=== PATIENT | male | born 1940 | race Caucasian/White ===

== ENCOUNTER 2016-12-14 11:07 | Inpatient (IN) | payer MEDICARE ==
[~2016-12-14] VITALS: Ht 172.7 cm; Wt 56.0 kg
[~2016-12-14 11:07] MED LIST: ADVAIR DISK1 INH; AMITRIPTYLINE H10 MG PO; BL ASPIRIN325 MG PO; CARVEDILOL3.125 MG PO; CARVEDILOL6.25 MG PO; COREG12.5 MG PO; CYANOCOBALAM1000 MCG IJ; CYANOCOBALAM1000 MCG IM; ELIQUIS2.5 MG; ISOSORB MONO30 MG PO; ISOSORBIDE MONO30 MG PO; LANOXIN0.25 MG PO; LIPITOR20 MG PO; LISINOPRIL5 MG PO; MEDDOSEPAK PO; MEGACE20 MG PO; METO50TA52 PO; NITROGLYCER0.4 MG SL; NITROSTAT0.4 MG SL; NORCO1 TAB PO; PANTOPRAZOLE SO40 MG PO; PAROXETINE20 MG PO; SERTRALINE HCL25 MG PO; SPIRIVA HANDIHALER IN; VENTOLIN HFA IN; VISTARIL 50MG C50 M1 PO; XARELTO20 MG PO; ZESTRIL10 M1 PO; ZOLOFT25 MG PO; ZPAK PO
[2016-12-14 11:48] LABS: HEMATOCRIT 41.5 % (39.0-50.0); HEMOGLOBIN 14.3 g/dl (14.0-18.0); IMMATURE GRANULOCYTES 0.3 % (0.0-1.0); MEAN CELL VOLUME 109.2 fL CALC (80.0-100.0); MEAN CORPUSCULAR HGB 37.6 pG CALC (26.0-32.0); MEAN CORPUSCULAR HGB CONC 34.5 g/L CALC (32.0-36.0); NEUT# 5.14 thou/uL (1.82-7.42); RED BLOOD COUNT 3.8 mill/uL (4.70-6.10); RED CELL DISTRI WIDTH 13.8 % (11.5-15.5)
[2016-12-14 11:59] LABS: ALBUMIN 4.3 g/dL (3.2-5.0); ALKALINE PHOSPHATASE 116 u/l (38-126); ANION GAP 16 (6-22 (CALC)); BILIRUBIN, TOTAL 1.3 mg/dL (0.0-1.4); BUN 14 mg/dL (8-23); BUN/CREATININE RATIO 11 (12-20 (CALC)); CALCIUM 9.5 mg/dL (8.4-10.2); CARBON DIOXIDE 25 mmol/l (22-30); CHLORIDE 104 mmol/l (95-108); CREATININE 1.2 mg/dL (0.7-1.3); GFR 59 ML/MIN (>=60 (CALC)); GFR FOR AFR.AMER. > 60 ML/MIN (>=60 (CALC)); GLUCOSE 106 mg/dL (82-115); POTASSIUM 4.3 mmol/l (3.5-5.1); SGOT/AST 45 u/l (19-48); SGPT/ALT 22 u/l (11-66); SODIUM 140 mmol/l (137-146); TOTAL PROTEIN 7.4 g/dL (6.3-8.2)
[2016-12-14 12:12] LABS: MYOGLOBIN 58 ng/mL (0 - 121)
[2016-12-14] MEDS ORDERED: VITAMIN C500 MG PO (12:34)
[2016-12-14] MEDS ORDERED: ASPIRIN81 MG PO (12:34)
[2016-12-14] MEDS ORDERED: B121000 MCG PO (12:35)
[2016-12-14] MEDS ORDERED: LISINOPRIL20 MG PO (12:35)
[2016-12-14] MEDS ORDERED: DILTIAZEM240 MG PO (12:36)
[2016-12-14 15:30] VITALS: BP 123/74
[2016-12-14 16:15] VITALS: BP 121/81
[2016-12-14 18:00] VITALS: BP 143/70
[2016-12-14 20:00] VITALS: BP 143/70
[2016-12-14 22:00] VITALS: BP 119/71
[2016-12-15] VITALS (17 sets, daily range): BP systolic 93–136; BP diastolic 57–82
[2016-12-15 05:56] LABS: HEMOGLOBIN 12.5 g/dl (14.0-18.0); IMMATURE GRANULOCYTES 0.3 % (0.0-1.0); MEAN CELL VOLUME 109.5 fL CALC (80.0-100.0); MEAN CORPUSCULAR HGB CONC 33.8 g/L CALC (32.0-36.0); NEUT# 4.07 thou/uL (1.82-7.42); RED BLOOD COUNT 3.38 mill/uL (4.70-6.10)
[2016-12-15 06:08] LABS: ANION GAP 10 (6-22 (CALC)); BUN 15 mg/dL (8-23); BUN/CREATININE RATIO 13 (12-20 (CALC)); CALCIUM 8.8 mg/dL (8.4-10.2); CARBON DIOXIDE 24 mmol/l (22-30); CHLORIDE 109 mmol/l (95-108); CREATININE 1.2 mg/dL (0.7-1.3); GFR 59 ML/MIN (>=60 (CALC)); GFR FOR AFR.AMER. > 60 ML/MIN (>=60 (CALC)); GLUCOSE 117 mg/dL (82-115); POTASSIUM 4.2 mmol/l (3.5-5.1); SODIUM 139 mmol/l (137-146)
[2016-12-16] VITALS (18 sets, daily range): BP systolic 91–160; BP diastolic 53–78
[2016-12-16 07:36] LABS: ANION GAP 11 (6-22 (CALC)); BUN 13 mg/dL (8-23); BUN/CREATININE RATIO 12 (12-20 (CALC)); CALCIUM 8.9 mg/dL (8.4-10.2); CARBON DIOXIDE 22 mmol/l (22-30); CHLORIDE 110 mmol/l (95-108); CREATININE 1.1 mg/dL (0.7-1.3); GFR > 60 ML/MIN (>=60 (CALC)); GFR FOR AFR.AMER. > 60 ML/MIN (>=60 (CALC)); GLUCOSE 125 mg/dL (82-115); POTASSIUM 3.9 mmol/l (3.5-5.1); SODIUM 139 mmol/l (137-146)
[2016-12-17] VITALS (13 sets, daily range): BP systolic 136–162; BP diastolic 64–97
[2016-12-17 06:21] LABS: ANION GAP 10 (6-22 (CALC)); BUN 17 mg/dL (8-23); BUN/CREATININE RATIO 15 (12-20 (CALC)); CARBON DIOXIDE 26 mmol/l (22-30); CHLORIDE 106 mmol/l (95-108); CREATININE 1.1 mg/dL (0.7-1.3); GFR > 60 ML/MIN (>=60 (CALC)); GFR FOR AFR.AMER. > 60 ML/MIN (>=60 (CALC)); GLUCOSE 86 mg/dL (82-115); POTASSIUM 4.3 mmol/l (3.5-5.1); SODIUM 139 mmol/l (137-146)
[2016-12-17 06:24] LABS: HEMATOCRIT 37.6 % (39.0-50.0); HEMOGLOBIN 12.8 g/dl (14.0-18.0); IMMATURE GRANULOCYTES 0.3 % (0.0-1.0); MEAN CELL VOLUME 111.2 fL CALC (80.0-100.0); MEAN CORPUSCULAR HGB 37.9 pG CALC (26.0-32.0); NEUT# 4.72 thou/uL (1.82-7.42); RED BLOOD COUNT 3.38 mill/uL (4.70-6.10); RED CELL DISTRI WIDTH 13.6 % (11.5-15.5)
[2016-12-18] VITALS (12 sets, daily range): BP systolic 117–168; BP diastolic 58–102
[2016-12-18 05:12] LABS: HEMATOCRIT 37.5 % (39.0-50.0); HEMOGLOBIN 12.6 g/dl (14.0-18.0); IMMATURE GRANULOCYTES 0.2 % (0.0-1.0); MEAN CELL VOLUME 110.9 fL CALC (80.0-100.0); MEAN CORPUSCULAR HGB 37.3 pG CALC (26.0-32.0); MEAN CORPUSCULAR HGB CONC 33.6 g/L CALC (32.0-36.0); NEUT# 3.8 thou/uL (1.82-7.42); RED BLOOD COUNT 3.38 mill/uL (4.70-6.10); RED CELL DISTRI WIDTH 13.4 % (11.5-15.5)
[2016-12-18 05:27] LABS: ANION GAP 11 (6-22 (CALC)); BUN 19 mg/dL (8-23); BUN/CREATININE RATIO 16 (12-20 (CALC)); CALCIUM 9.1 mg/dL (8.4-10.2); CARBON DIOXIDE 26 mmol/l (22-30); CHLORIDE 108 mmol/l (95-108); CREATININE 1.1 mg/dL (0.7-1.3); GFR > 60 ML/MIN (>=60 (CALC)); GFR FOR AFR.AMER. > 60 ML/MIN (>=60 (CALC)); GLUCOSE 95 mg/dL (82-115); MAGNESIUM 1.8 mg/dL (1.6-2.3); POTASSIUM 3.9 mmol/l (3.5-5.1); SODIUM 141 mmol/l (137-146)
[2016-12-19 04:05] VITALS: BP 141/98
[2016-12-19 08:35] VITALS: BP 141/95
[2016-12-19 11:57] VITALS: BP 141/89
[2016-12-19 15:23] VITALS: BP 118/77
[2016-12-19 19:00] VITALS: BP 132/78
[2016-12-20 00:10] VITALS: BP 120/70
[2016-12-20 04:50] VITALS: BP 135/80
[2016-12-20 05:24] LABS: ANION GAP 12 (6-22 (CALC)); BUN 27 mg/dL (8-23); BUN/CREATININE RATIO 24 (12-20 (CALC)); CARBON DIOXIDE 23 mmol/l (22-30); CHLORIDE 109 mmol/l (95-108); CREATININE 1.1 mg/dL (0.7-1.3); GFR > 60 ML/MIN (>=60 (CALC)); GFR FOR AFR.AMER. > 60 ML/MIN (>=60 (CALC)); GLUCOSE 82 mg/dL (82-115); POTASSIUM 4.4 mmol/l (3.5-5.1); SODIUM 139 mmol/l (137-146)
[2016-12-20 07:23] VITALS: BP 143/83
[2016-12-20] MEDS ORDERED: CORDARONE/200 MG/TAB PO (10:35)
[2016-12-20] MEDS ORDERED: DIGOXIN0.125 MG PO (10:36)
[2016-12-20 13:56] VITALS: BP 147/78
[2016-12-20 14:15] LABS: HEMATOCRIT 38.6 % (39.0-50.0); HEMOGLOBIN 12.9 g/dl (14.0-18.0); IMMATURE GRANULOCYTES 0.2 % (0.0-1.0); MEAN CELL VOLUME 113.5 fL CALC (80.0-100.0); MEAN CORPUSCULAR HGB 37.9 pG CALC (26.0-32.0); MEAN CORPUSCULAR HGB CONC 33.4 g/L CALC (32.0-36.0); NEUT# 2.56 thou/uL (1.82-7.42); RED BLOOD COUNT 3.4 mill/uL (4.70-6.10); RED CELL DISTRI WIDTH 14.1 % (11.5-15.5)
[2016-12-20] MEDS ORDERED: INVANZ1 GM IJ (14:48)
[2016-12-20] MEDS ORDERED: LANOXIN0.125 MG PO (15:10)
== END 2016-12-20 15:30 | disposition home or self-care (01) | DRG 177 ==
LOC: ENPENDDIS → ED 11:07 → ED-I 12:50 → ED 13:16 → ICU 13:17 → MS2 12-18 15:15
PROVIDERS: Emergency Medicine; Internal Medicine; ADMIT Internal Medicine; ATTEND Internal Medicine
DX: J86.9 Pyothorax without fistula (principal); J15.1 Pneumonia due to Pseudomonas; I50.33 Acute on chronic diastolic (congestive) heart failure; J96.11 Chronic respiratory failure with hypoxia; K51.90 Ulcerative colitis, unspecified, without complications; I11.0 Hypertensive heart disease with heart failure; I48.2 Chronic atrial fibrillation; J44.0 Chronic obstructive pulmonary disease with (acute) lower respiratory infection; I10 Essential (primary) hypertension; E78.5 Hyperlipidemia, unspecified; I25.10 Atherosclerotic heart disease of native coronary artery without angina pectoris; I70.209 Unspecified atherosclerosis of native arteries of extremities, unspecified extremity; F17.210 Nicotine dependence, cigarettes, uncomplicated; Z95.0 Presence of cardiac pacemaker; Z88.0 Allergy status to penicillin; Z95.828 Presence of other vascular implants and grafts
CPT/HCPCS: J0282; J1160; J1335; Q9967

== ENCOUNTER 2018-01-05 10:14 | Inpatient (IN) | payer MEDICARE ==
[~2018-01-05] VITALS: Ht 170.2 cm; Wt 54.4 kg
[~2018-01-05 10:14] MED LIST changes: +ASPIRIN81 MG PO; +B121000 MCG PO; +CORDARONE/200 MG/TAB PO; +DIGOXIN0.125 MG PO; +DILTIAZEM240 MG PO; +INVANZ1 GM IJ; +LANOXIN0.125 MG PO; +LISINOPRIL20 MG PO; +VITAMIN C500 MG PO
[2018-01-05 10:35] VITALS: BP 196/100
[2018-01-05 10:46] LABS: HEMATOCRIT 42.5 % (39.0-50.0); HEMOGLOBIN 14.3 g/dl (14.0-18.0); IMMATURE GRANULOCYTES 0.5 % (0.0-1.0); MEAN CELL VOLUME 108.1 fL CALC (80.0-100.0); MEAN CORPUSCULAR HGB 36.4 pG CALC (26.0-32.0); MEAN CORPUSCULAR HGB CONC 33.6 g/L CALC (32.0-36.0); NEUT# 5.62 thou/uL (1.82-7.42); RED BLOOD COUNT 3.93 mill/uL (4.70-6.10); RED CELL DISTRI WIDTH 13.7 % (11.5-15.5)
[2018-01-05 11:47] LABS: ANION GAP 12 (6-22 (CALC)); BUN 10 mg/dL (8-23); BUN/CREATININE RATIO 12 (12-20 (CALC)); CARBON DIOXIDE 27 mmol/l (22-30); CHLORIDE 106 mmol/l (95-108); CREATININE 0.9 mg/dL (0.7-1.3); GFR > 60 ML/MIN (>=60 (CALC)); GFR FOR AFR.AMER. > 60 ML/MIN (>=60 (CALC)); POTASSIUM 4.7 mmol/l (3.5-5.1); SODIUM 140 mmol/l (137-146)
[2018-01-05 13:00] LABS: URINE BILIRUBIN - DIPSTICK NEGATIVE (NEGATIVE); URINE BLOOD DIPSTICK NEGATIVE (NEGATIVE); URINE COLOR YELLOW; URINE GLUCOSE - DIPSTICK NEGATIVE (NEGATIVE); URINE KETONE NEGATIVE (NEGATIVE); URINE LEUK ESTERASE TRACE (NEGATIVE); URINE NITRITE - DIPSTICK NEGATIVE (Negative); URINE PH 6.5 (4.5-8.0); URINE PROTEIN - DIPSTICK NEGATIVE (NEG-TRACE)
[2018-01-05 13:07] LABS: URINE CLARITY CLEAR
[2018-01-05 15:43] VITALS: BP 139/63
[2018-01-05] MEDS ORDERED: AMIODARONE200 MG PO (17:08)
[2018-01-05] MEDS ORDERED: LIPITOR20 MG PO (17:09)
[2018-01-05] MEDS ORDERED: LASIX 40 MG40 MG/TAB PO (17:09)
[2018-01-05 19:20] VITALS: BP 137/60
[2018-01-06] VITALS (8 sets, daily range): BP systolic 127–166; BP diastolic 50–76
[2018-01-06 05:13] LABS: ALKALINE PHOSPHATASE 123 u/l (38-126); ANION GAP 10 (6-22 (CALC)); BILIRUBIN, TOTAL 0.5 mg/dL (0.0-1.4); BUN 17 mg/dL (8-23); BUN/CREATININE RATIO 19 (12-20 (CALC)); CARBON DIOXIDE 24 mmol/l (22-30); CHLORIDE 108 mmol/l (95-108); CREATININE 0.9 mg/dL (0.7-1.3); GFR > 60 ML/MIN (>=60 (CALC)); GFR FOR AFR.AMER. > 60 ML/MIN (>=60 (CALC)); POTASSIUM 4.3 mmol/l (3.5-5.1); SGOT/AST 20 u/l (19-48); SGPT/ALT 27 u/l (11-66); SODIUM 137 mmol/l (137-146)
[2018-01-06 05:38] LABS: ALBUMIN 2.8 g/dL (3.2-5.0); TOTAL PROTEIN 5.7 g/dL (6.3-8.2)
[2018-01-06] MEDS ORDERED: NEBULIZER (10:41)
[2018-01-06] MEDS ORDERED: BEVESPI AEROSPH1 AER PO (10:42)
[2018-01-07 04:17] VITALS: BP 155/70
[2018-01-07 06:04] LABS: IMMATURE GRANULOCYTES 0.8 % (0.0-1.0); MEAN CELL VOLUME 108.2 fL CALC (80.0-100.0); MEAN CORPUSCULAR HGB 36.8 pG CALC (26.0-32.0); NEUT# 16.08 thou/uL (1.82-7.42); RED BLOOD COUNT 3.04 mill/uL (4.70-6.10); RED CELL DISTRI WIDTH 13.7 % (11.5-15.5)
[2018-01-07 06:07] LABS: HEMATOCRIT 32.9 % (39.0-50.0); HEMOGLOBIN 11.2 g/dl (14.0-18.0)
[2018-01-07 06:31] LABS: ANION GAP 7 (6-22 (CALC)); BUN 21 mg/dL (8-23); BUN/CREATININE RATIO 23 (12-20 (CALC)); CARBON DIOXIDE 25 mmol/l (22-30); CHLORIDE 110 mmol/l (95-108); CREATININE 0.9 mg/dL (0.7-1.3); GFR > 60 ML/MIN (>=60 (CALC)); GFR FOR AFR.AMER. > 60 ML/MIN (>=60 (CALC)); MAGNESIUM 1.8 mg/dL (1.6-2.3); POTASSIUM 4.2 mmol/l (3.5-5.1); SODIUM 138 mmol/l (137-146)
[2018-01-07 07:41] VITALS: BP 178/88
[2018-01-07 12:57] VITALS: BP 156/75
[2018-01-07 17:00] VITALS: BP 138/43
[2018-01-07 19:50] VITALS: BP 129/64
[2018-01-08 00:10] VITALS: BP 129/68
[2018-01-08 04:50] VITALS: BP 156/78
[2018-01-08 08:43] LABS: HEMOGLOBIN 12.9 g/dl (14.0-18.0); MEAN CELL VOLUME 109.2 fL CALC (80.0-100.0); MEAN CORPUSCULAR HGB 35.8 pG CALC (26.0-32.0); MEAN CORPUSCULAR HGB CONC 32.8 g/L CALC (32.0-36.0); RED BLOOD COUNT 3.6 mill/uL (4.70-6.10); RED CELL DISTRI WIDTH 13.4 % (11.5-15.5)
[2018-01-08 08:45] LABS: HEMATOCRIT 39.3 % (39.0-50.0)
[2018-01-08 08:50] LABS: ANION GAP 10 (6-22 (CALC)); BUN 28 mg/dL (8-23); BUN/CREATININE RATIO 32 (12-20 (CALC)); CARBON DIOXIDE 27 mmol/l (22-30); CHLORIDE 105 mmol/l (95-108); CREATININE 0.9 mg/dL (0.7-1.3); GFR > 60 ML/MIN (>=60 (CALC)); GFR FOR AFR.AMER. > 60 ML/MIN (>=60 (CALC)); POTASSIUM 4.2 mmol/l (3.5-5.1); SODIUM 138 mmol/l (137-146)
[2018-01-08 09:01] VITALS: BP 149/61
[2018-01-08 11:14] VITALS: BP 127/66
[2018-01-08 15:26] VITALS: BP 151/63
[2018-01-08 19:35] VITALS: BP 140/71
[2018-01-09 00:05] VITALS: BP 139/71
[2018-01-09 04:40] VITALS: BP 155/72
[2018-01-09 05:22] LABS: HEMATOCRIT 38.3 % (39.0-50.0); HEMOGLOBIN 12.3 g/dl (14.0-18.0); IMMATURE GRANULOCYTES 0.6 % (0.0-1.0); MEAN CELL VOLUME 114.3 fL CALC (80.0-100.0); MEAN CORPUSCULAR HGB 36.7 pG CALC (26.0-32.0); MEAN CORPUSCULAR HGB CONC 32.1 g/L CALC (32.0-36.0); NEUT# 10.1 thou/uL (1.82-7.42); RED BLOOD COUNT 3.35 mill/uL (4.70-6.10); RED CELL DISTRI WIDTH 13.6 % (11.5-15.5)
[2018-01-09 05:23] LABS: ANION GAP 12 (6-22 (CALC)); BUN 34 mg/dL (8-23); BUN/CREATININE RATIO 36 (12-20 (CALC)); CARBON DIOXIDE 23 mmol/l (22-30); CHLORIDE 107 mmol/l (95-108); CREATININE 0.9 mg/dL (0.7-1.3); GFR > 60 ML/MIN (>=60 (CALC)); GFR FOR AFR.AMER. > 60 ML/MIN (>=60 (CALC)); MAGNESIUM 1.6 mg/dL (1.6-2.3); POTASSIUM 3.4 mmol/l (3.5-5.1); SODIUM 139 mmol/l (137-146)
[2018-01-09 08:04] VITALS: BP 154/61
[2018-01-09 10:52] VITALS: BP 158/68
[2018-01-09 15:12] VITALS: BP 165/69
[2018-01-09 20:06] VITALS: BP 143/65
[2018-01-10 00:26] VITALS: BP 162/88
[2018-01-10 05:08] VITALS: BP 177/70
[2018-01-10 05:20] LABS: HEMATOCRIT 36.7 % (39.0-50.0); HEMOGLOBIN 12.3 g/dl (14.0-18.0); IMMATURE GRANULOCYTES 0.7 % (0.0-1.0); MEAN CORPUSCULAR HGB CONC 33.5 g/L CALC (32.0-36.0); NEUT# 8.01 thou/uL (1.82-7.42); RED BLOOD COUNT 3.42 mill/uL (4.70-6.10); RED CELL DISTRI WIDTH 13.1 % (11.5-15.5)
[2018-01-10 05:25] LABS: MEAN CELL VOLUME 107.3 fL CALC (80.0-100.0)
[2018-01-10 05:34] LABS: ANION GAP 9 (6-22 (CALC)); BUN 35 mg/dL (8-23); BUN/CREATININE RATIO 36 (12-20 (CALC)); CARBON DIOXIDE 29 mmol/l (22-30); CHLORIDE 103 mmol/l (95-108); GFR > 60 ML/MIN (>=60 (CALC)); GFR FOR AFR.AMER. > 60 ML/MIN (>=60 (CALC)); MAGNESIUM 1.8 mg/dL (1.6-2.3); POTASSIUM 3.2 mmol/l (3.5-5.1); SODIUM 137 mmol/l (137-146)
[2018-01-10 08:00] VITALS: BP 181/75
[2018-01-10 11:50] VITALS: BP 154/60
[2018-01-10] MEDS ORDERED: IPRATROPIU0.5 MG/3 M IN (13:31)
[2018-01-10] MEDS ORDERED: PREDNISONE10 MG PO (13:31)
[2018-01-10] MEDS ORDERED: FLORASTOR250 M1 PO (13:31)
[2018-01-10] MEDS ORDERED: LEVAQUIN750 MG PO (13:31)
[2018-01-10] MEDS ORDERED: ALBUTEROL SUL0.083 % IN (13:35)
== END 2018-01-10 16:18 | DRG 177 ==
LOC: MS2 10:14
PROVIDERS: Nurse Practitioner; Nurse Practitioner Family; ADMIT Internal Medicine; ATTEND Internal Medicine
PROC: 0W9B3ZZ Drainage of Left Pleural Cavity, Percutaneous Approach (ICD-10-PCS; principal; 2018-01-05)
DX: J15.1 Pneumonia due to Pseudomonas (principal); J96.20 Acute and chronic respiratory failure, unspecified whether with hypoxia or hypercapnia; J44.1 Chronic obstructive pulmonary disease with (acute) exacerbation; J91.8 Pleural effusion in other conditions classified elsewhere; R04.2 Hemoptysis; J44.0 Chronic obstructive pulmonary disease with (acute) lower respiratory infection; I10 Essential (primary) hypertension; E78.5 Hyperlipidemia, unspecified; I25.10 Atherosclerotic heart disease of native coronary artery without angina pectoris; I48.91 Unspecified atrial fibrillation; I73.9 Peripheral vascular disease, unspecified; F17.210 Nicotine dependence, cigarettes, uncomplicated; D72.829 Elevated white blood cell count, unspecified; T38.0X5A Adverse effect of glucocorticoids and synthetic analogues, initial encounter; E87.6 Hypokalemia; R91.1 Solitary pulmonary nodule; Z99.81 Dependence on supplemental oxygen; Z95.828 Presence of other vascular implants and grafts; Z95.0 Presence of cardiac pacemaker; Z72.89 Other problems related to lifestyle
CPT/HCPCS: J0692

== ENCOUNTER 2018-01-20 08:47 | Emergency (ER) | payer MEDICARE ==
[~2018-01-20] VITALS: Ht 170.2 cm; Wt 75.0 kg
[~2018-01-20 08:47] MED LIST changes: +ALBUTEROL SUL0.083 % IN; +AMIODARONE200 MG PO; +BEVESPI AEROSPH1 AER PO; +FLORASTOR250 M1 PO; +IPRATROPIU0.5 MG/3 M IN; +LASIX 40 MG40 MG/TAB PO; +LEVAQUIN750 MG PO; +NEBULIZER; +PREDNISONE10 MG PO
[2018-01-20 09:52] LABS: HEMATOCRIT 36.6 % (39.0-50.0); HEMOGLOBIN 12.6 g/dl (14.0-18.0); IMMATURE GRANULOCYTES 0.8 % (0.0-1.0); MEAN CELL VOLUME 105.2 fL CALC (80.0-100.0); MEAN CORPUSCULAR HGB 36.2 pG CALC (26.0-32.0); MEAN CORPUSCULAR HGB CONC 34.4 g/L CALC (32.0-36.0); NEUT# 10.46 thou/uL (1.82-7.42); RED BLOOD COUNT 3.48 mill/uL (4.70-6.10); RED CELL DISTRI WIDTH 13.5 % (11.5-15.5)
[2018-01-20 10:11] LABS: ALBUMIN 3.3 g/dL (3.2-5.0); ALKALINE PHOSPHATASE 100 u/l (38-126); ANION GAP 8 (6-22 (CALC)); BILIRUBIN, TOTAL 0.9 mg/dL (0.0-1.4); BUN 17 mg/dL (8-23); BUN/CREATININE RATIO 19 (12-20 (CALC)); CARBON DIOXIDE 29 mmol/l (22-30); CHLORIDE 104 mmol/l (95-108); CREATININE 0.9 mg/dL (0.7-1.3); GFR > 60 ML/MIN (>=60 (CALC)); GFR FOR AFR.AMER. > 60 ML/MIN (>=60 (CALC)); POTASSIUM 3.4 mmol/l (3.5-5.1); SGPT/ALT 32 u/l (11-66); SODIUM 138 mmol/l (137-146)
[2018-01-20 10:14] LABS: SGOT/AST 42 u/l (19-48)
[2018-01-20] MEDS ORDERED: [UNRECOGNIZED DRUG - OTHER] PO (10:43)
[2018-01-20] MEDS ORDERED: AMIODARONE200 MG PO (10:46)
[2018-01-20] MEDS ORDERED: BEVESPI AEROSPH1 AER IN (10:46)
[2018-01-20] MEDS ORDERED: ATORVASTATIN CA20 MG PO (10:48)
[2018-01-20] MEDS ORDERED: ROBITUSSIN200 MG/10 PO (10:50)
[2018-01-20 11:40] VITALS: BP 164/74
== END 2018-01-20 11:45 | disposition home or self-care (01) ==
LOC: ED 08:47
PROVIDERS: Emergency Medicine
DX: I11.0 Hypertensive heart disease with heart failure (principal); I50.9 Heart failure, unspecified; M19.90 Unspecified osteoarthritis, unspecified site; F17.210 Nicotine dependence, cigarettes, uncomplicated; Z95.0 Presence of cardiac pacemaker; R94.31 Abnormal electrocardiogram [ECG] [EKG]

== ENCOUNTER 2018-04-29 16:43 | Inpatient (IN) | payer MEDICARE ==
[~2018-04-29] VITALS: Ht 170.2 cm; Wt 46.3 kg
[~2018-04-29 16:43] MED LIST changes: +ATORVASTATIN CA20 MG PO; +BEVESPI AEROSPH1 AER IN; +ROBITUSSIN200 MG/10 PO; +[UNRECOGNIZED DRUG - OTHER] PO
--- NOTE | 2018-04-29 16:52 | NUR ---
PT ARRIVES VIA EMS STRETCHER, PT C/O TRIPPING OVER A PIECE OF TRIM ON THE FLOOR AND FALLING. DENIES LOC. SWELLING NOTED TO LEFT FRONTAL AREA, PT ON BLOOD THINNERS, DENIES LOC.
--- NOTE | 2018-04-29 17:40 | NUR ---
PATIENT RETURNS FROM CT, ALERT AND ORIENTED X3. REPORTS RIGHT KNEE PAIN 05/04. TERESA PENNY INFORMED.
--- NOTE | 2018-04-29 18:10 | NUR ---
PATIENT REQUESTING TO REMOVE DRESSING APPLIED BY EMS. DRESSING REMOVED, WATCH REMOVED AND GIVEN TO . URINAL GIVEN PER REQUEST. WILL CONTINUE TO MONITOR.
--- NOTE | 2018-04-29 18:25 | NUR ---
IV SITE REMOVED DUE TO BLEEDING FROM IV SITE, PRESSURE DRESSING APPLIED, NON-STICK TELF USED ON SKIN TEAR TO LFA. TERESA PENNY INFORMED.
--- NOTE | 2018-04-29 18:32 | NUR ---
TERESA PENNY AT BEDSIDE TO DISCUSS RESULTS.
--- NOTE | 2018-04-29 19:14 | NUR ---
REPRT CALLED TO DARIEL SARGENT.
--- NOTE | 2018-04-29 19:15 | NUR ---
Admission Note Report Given to: DARIEL SARGENT Transported by: Wheelchair X Stretcher Transported with: X Nurse Transporter Patent IV O2 Fiber Optic Splicer PATIENT OUT OF DEPARTMENT IN STABLE CONDITION, CARE RELINQUISHED. FAMILY ACCOMPANIES PATIENT.
[2018-04-29 19:19] VITALS: BP 178/79
--- NOTE | 2018-04-29 19:30 | NUR ---
ASSESSMENT IS COMPLETED: NO IV SITE , DRESSING ON BILATERAL ARMS FROM SKIN TEARS AND IV SITE THAT WAS TAKEN OUT IN ER. BREATH SOUNDS ARE CLEAR, BILATERALLY, NO C/O SOB HR IS REG, PULSES ARE STRONG X4, ABD IS SOFT WITH ACTIVE BS. CALL MCHUGH WITH IN REACH, FAMILY WENT HOME. CONITNUE TO OSBERVE AND MONITOR.
--- NOTE | 2018-04-29 19:30 | NUR ---
PT CAME TO THE UNIT AT 1919 VIA STRETCHER WITH FAMILY AND STAFF, NO IV SITE . DRESSING INTACT ON BILATERAL ARMS. FROM SKIN TEARS.
--- NOTE | 2018-04-29 23:47 | NUR ---
GAVE PT HIS HEPARIN AT 2200 THE COMPUTER THAT WAS IN USE HAS LOCKED THIS AMBULATORY CARE COORDINATOR IN , IT LOOKS LIKE IT WAS NOT GIVEN. PT DID RECEIVE ON TIME.
--- NOTE | 2018-04-30 | NUR ---
PT IS RESTIGN WITH EYES CLOSED. NO IV SITE . CONTINUE TO OSBERVE AND MONITOR.
--- NOTE | 2018-04-30 04:05 | NUR ---
pt has been resting off and on, conitnue to observe and monitor.
[2018-04-30 05:25] VITALS: BP 145/75
--- NOTE | 2018-04-30 07:15 | NUR ---
PT RESTING IN BED, NO SIGNS OF DISTRESS NOTED, RESP EVEN AND UNLABORED. IS AT BEDSIDE, PT PROVIDED TEACHING AND DEMONSTRATED ITS USE. DISCUSSED POC,PT IN AGREEMENT. NO IV SITE. PT STATES HE CANNOT WALK DUE TO SEVERE PAIN TO RLE, WILL NOTIFY MD FOR PAIN MEDICATION. PT ALERT AND ORIENTED X3, MULTIPLE ABRASIONS AND BRUISING FROM FALL AT HOME HE WALKED INTO HIS SHED HE TRIPPED AND HIT THE CONCRETE, NO LOC. PT HAS A DRESSING TO R HAND, NOTED ABRASION TO HIS HEAD NO DRAINAGE NOTED. ASSESSMENT COMPLETED. CALL LIGHT IN REACH,CONTINUE TO MONITOR.
[2018-04-30 09:03] VITALS: BP 139/63
[2018-04-30 09:37] LABS: URINE BILIRUBIN - DIPSTICK NEGATIVE (NEGATIVE); URINE BLOOD DIPSTICK NEGATIVE (NEGATIVE); URINE COLOR YELLOW; URINE GLUCOSE - DIPSTICK NEGATIVE (NEGATIVE); URINE KETONE TRACE mg/dL (NEGATIVE); URINE LEUK ESTERASE NEGATIVE (NEGATIVE); URINE NITRITE - DIPSTICK NEGATIVE (Negative); URINE PH 6.5 (4.5-8.0); URINE PROTEIN - DIPSTICK NEGATIVE (NEG-TRACE)
[2018-04-30 09:41] LABS: URINE CLARITY CLEAR
[2018-04-30 09:59] LABS: ALBUMIN 3.4 g/dL (3.2-5.0); ALKALINE PHOSPHATASE 90 u/l (38-126); BUN 16 mg/dL (8-23); BUN/CREATININE RATIO 17 (12-20 (CALC)); CARBON DIOXIDE 27 mmol/l (22-30); CHLORIDE 108 mmol/l (95-108); ETHYL ALCOHOL 0 mg/dl (0-30); GFR > 60 ML/MIN (>=60 (CALC)); GFR FOR AFR.AMER. > 60 ML/MIN (>=60 (CALC)); SGOT/AST 33 u/l (19-48); SODIUM 140 mmol/l (137-146); TOTAL PROTEIN 5.9 g/dL (6.3-8.2)
--- NOTE | 2018-04-30 10:12 | NUR ---
OFFERED NEB TX TO PT. HE DECLINED IN NO APPARENT DISTRESS. I INSTRUCTED HIM TO CALL IF SOB.
[2018-04-30 10:31] LABS: ANION GAP 9 (6-22 (CALC)); POTASSIUM 4.4 mmol/l (3.5-5.1)
[2018-04-30 12:15] LABS: PROTHROMBIN TIME 10.3 SECONDS (9.0-12.5)
--- NOTE | 2018-04-30 13:00 | NUR ---
DR. PINEDO'S OFFICE WAS CALLED AND GIVEN THE INFORMATION REGARDING PATIENT'S CONSULTATION. HE WILL COME AND SEE THE PATIENT.
--- NOTE | 2018-04-30 13:00 | NUR ---
RESULTS OF XRAY REVIEWED BY PHARMACY LABORATORY TECHNICIAN, INFORMED TO HOLD ORTHOSTATIC BPS FOR NOW
--- NOTE | 2018-04-30 13:22 | NUR ---
ATTEMPTED TO CALL , NO ANSWER, UNABLE TO LEAVE A MESSAGE DUE TO FULL VOICEMAIL.
--- NOTE | 2018-04-30 13:31 | NUR ---
SPOKE WITH DR.CONNELLY GODDARD TO REVIEW XRAY IMAGING AND RETURN CALL IF NEEDED. POSS SURGICAL CASE FOR WEDNESDAY.
--- NOTE | 2018-04-30 13:39 | NUR ---
PT MEDICATED FOR PAIN, 05/04 WITH PERCOCET, CALL LIGHT IN REACH,CONTINUE TO MONITOR.
--- NOTE | 2018-04-30 14:53 | NUR ---
PT RESTING IN BED WITH EYES CLOSED, NO SIGNS OF DISTRESS NOTED, RESP EVEN AND UNLABORED. CALL LIGHT IN REACH,CONTINUE TO MONITOR.
[2018-04-30 16:00] VITALS: BP 151/70
[2018-04-30 16:03] LABS: HEMATOCRIT 40.1 % (39.0-50.0); HEMOGLOBIN 13.6 g/dl (14.0-18.0); IMMATURE GRANULOCYTES 0.3 % (0.0-5.0); MEAN CELL VOLUME 109.6 fL CALC (80.0-100.0); MEAN CORPUSCULAR HGB 37.2 pG CALC (26.0-32.0); MEAN CORPUSCULAR HGB CONC 33.9 g/L CALC (32.0-36.0); NEUT# 5.09 thou/uL (1.82-7.42); RED BLOOD COUNT 3.66 mill/uL (4.70-6.10); RED CELL DISTRI WIDTH 14.6 % (11.5-15.5)
--- NOTE | 2018-04-30 16:16 | NUR ---
ICE REMOVED AND R KNEE WRAPPED PER ORDERS
--- NOTE | 2018-04-30 17:19 | NUR ---
PT TAKEN DOWN TO RADIOLOGY FOR EXAMS, PT STABLE, VIA STRETCHER.
--- NOTE | 2018-04-30 19:00 | NUR ---
PT SITTING UP IN BED WATCHING TV. PT IS ALERT AND ORIENTED X3. SHIFT ASSESSMENT COMPLETED AT THIS TIME. IV PATENT X1. SOFT NECK COLLAR APPLIED PER NAEL POWER EQUIPMENT MECHANICS INSTRUCTOR ORDER. PLAN OF CARE REVIEWED WITH PT. PT VERBALIZED UNDERSTANDING. PT ABLE TO MOVE HAND BY BENDING FINGERS AWAITING RIGHT HAND XRAY RESULTS. RLE EVALUATED. NO SHORTENING NOTED. +PEDAL PULSE. +SENSATION. <3SEC CAP REFILL. LAB INTO DRAW TROPONIN. CALL LIGHT IN REACH. WILL CONTINUE TO MONITOR.
[2018-04-30 19:18] VITALS: BP 120/70
--- NOTE | 2018-04-30 23:53 | NUR ---
PT RESTING IN BED WITH EYES CLOSED. RESP ARE EVEN AND UNLABORED. SOFT NECK COLLAR IN PLACE. CALL LIGHT IN REACH. WILL CONTINUE TO MONITOR
--- NOTE | 2018-05-01 03:45 | NUR ---
PT RESTING IN BED WATCHING TV. RESP ARE EVEN AND UNLABORED. NO DISTRESS NOTED. CALL LIGHT IN REACH. WILL CONTINUE TO MONITOR.
[2018-05-01 04:00] VITALS: BP 121/61
[2018-05-01 05:23] LABS: HEMOGLOBIN 12.4 g/dl (14.0-18.0); IMMATURE GRANULOCYTES 0.5 % (0.0-5.0); MEAN CELL VOLUME 110.1 fL CALC (80.0-100.0); MEAN CORPUSCULAR HGB 36.9 pG CALC (26.0-32.0); MEAN CORPUSCULAR HGB CONC 33.5 g/L CALC (32.0-36.0); NEUT# 5.37 thou/uL (1.82-7.42); RED BLOOD COUNT 3.36 mill/uL (4.70-6.10); RED CELL DISTRI WIDTH 14.5 % (11.5-15.5)
[2018-05-01 05:42] LABS: ANION GAP 9 (6-22 (CALC)); BUN 25 mg/dL (8-23); BUN/CREATININE RATIO 21 (12-20 (CALC)); CARBON DIOXIDE 29 mmol/l (22-30); CHLORIDE 106 mmol/l (95-108); CREATININE 1.2 mg/dL (0.7-1.3); GFR 58 ML/MIN (>=60 (CALC)); GFR FOR AFR.AMER. > 60 ML/MIN (>=60 (CALC)); MAGNESIUM 1.7 mg/dL (1.6-2.3); POTASSIUM 4.3 mmol/l (3.5-5.1); SODIUM 139 mmol/l (137-146)
--- NOTE | 2018-05-01 09:00 | NUR ---
ENTERED ROOM PT REQUESTING PAIN MEDICATION. PT MEDICATED PER SEP, ICE PLACED TO R FEMUR AND R KNEE FOR 15MIN WHILE IN ROOM. PT ALERT AND ORIENTED X3, RESP EVEN AND UNLABORED. SOFT COLLAR IN PLACE, DRESSINGS TO R HAND, LFA, AND L ELBOW CHANGED, SEE CHART FOR PHOTOS. IV SITE SL, FLUSHES WELL. ASSESSMENT COMPLETED.CALL LIGHT IN REACH, CONTINUE TO MONITOR.
[2018-05-01 09:04] VITALS: BP 143/62
--- NOTE | 2018-05-01 11:00 | NUR ---
ICE PLACED FOR 15 MIN, FAMILY AT BEDSIDE VISITING. CALL LIGHT IN REACH,CONTINUE TO MONITOR.
--- NOTE | 2018-05-01 12:20 | NUR ---
PATIENT WITH ACUTE SUBCAPITAL FX OF R FEMUR. NO CONSULT IN CHART FROM ORTHO. NSG STATES THAT SHE SPOKE WITH DR. PINEDO AND HE WILL MOST LIKELY HAVE SURGERY TOMORROW. DISCUSSED WITH CFD ENGINEER AND WILL HOLD UNTIL SAME.
--- NOTE | 2018-05-01 16:09 | NUR ---
PT RESTING IN BED, VOICES NO NEEDS OR COMPLAINTS AT THIS TIME. VISITORS AT BEDSIDE, CALL LIGHT IN REACH,CONTINUE TO MONITOR.
[2018-05-01 16:19] VITALS: BP 103/60
--- NOTE | 2018-05-01 17:21 | NUR ---
CALL RECEIVED FROM GERALD AT 'S OFFICE. ORDERS FOR NPO AFTER MIDNIGHT, CT R HIP. QUALITY REVIEW SPECIALIST NOTIFIED.
--- NOTE | 2018-05-01 18:35 | NUR ---
PT TAKEN DOWN TO RADIOLOGY FOR CT OF R HIP, ACCOMPANIED BY GLUING MACHINE ADJUSTER. CONTINUE TO MONITOR.
--- NOTE | 2018-05-01 19:00 | NUR ---
RECEIVED CHANGE OF SHIFT REPORT FROM DARIEL CALIX. PATIENT ALERT AND ORINTED AND IN BED IN GREENE POSITION. REPORTS PAIN WHEN MOVED. NO APPARENT ACUTE DISTRESS NOTED. WILL CONTINUE TO MONITOR.
[2018-05-01 19:13] VITALS: BP 118/66
--- NOTE | 2018-05-02 | NUR ---
PT RESTING QUIETLY WITH EYES CLOSED AND APPEARS TO BE ASLEEP. NO APPARENT ACUTE DISTRESS NOTED. WILL CONTINUE TO MONITOR.
[2018-05-02 00:25] VITALS: BP 96/58
[2018-05-02 04:26] VITALS: BP 118/59
[2018-05-02 05:51] LABS: ANION GAP 9 (6-22 (CALC)); BUN 25 mg/dL (8-23); BUN/CREATININE RATIO 20 (12-20 (CALC)); CARBON DIOXIDE 28 mmol/l (22-30); CHLORIDE 106 mmol/l (95-108); CREATININE 1.2 mg/dL (0.7-1.3); GFR 58 ML/MIN (>=60 (CALC)); GFR FOR AFR.AMER. > 60 ML/MIN (>=60 (CALC)); MAGNESIUM 1.9 mg/dL (1.6-2.3); POTASSIUM 4.6 mmol/l (3.5-5.1); SODIUM 138 mmol/l (137-146)
[2018-05-02 07:30] VITALS: BP 119/51
--- NOTE | 2018-05-02 07:30 | NUR ---
PT IS RELAXING IN BED , UNDERSTANDS THAT HE IS NPO. IV SITE IS FREE FROM REDNESS OR EDEMA. HR IS REG, PULSES ARE STRONG X4, ABD IS SOFT WITH ACTIVE BS. BREATH SOUNDS ARE CLEAR, BILATERALLY. CONTINUE TO OBSERVE AND MONITOR.
--- NOTE | 2018-05-02 12:15 | NUR ---
PT IS RELAXING AND VISITING WITH FAMILY. NO DISTRESS NOTED. IV SITE IS FREE FROM REDNESS OR EDEMA.
[2018-05-02 15:30] VITALS: BP 94/52
--- NOTE | 2018-05-02 16:15 | NUR ---
PT IS RELAXING IN BED WITH NO DISTRESS NOTED. IV SITE IS FREE FROM REDNESS OR EDEMA. CONTINUE TO OBSERVE AND MONITOR.
--- NOTE | 2018-05-02 17:00 | NUR ---
[place] TATE INITIATED WHEN DR. MASON REQUESTED WE WAIT UNTIL DR. PINEDO HAS SEEN PATIENT. WILL F/U AGAIN TOMORROW AND COMPLETE ASSESSMENT. PATIENT STATES THAT HE IS IN SCREAMING PAIN JUST WITH TRANFERRING FROM BED TO STRETCHER. HIS C/O PAIN ARE MAINLY AT MEDIAL KNEE/PROXIMAL TIBIA.
--- NOTE | 2018-05-02 18:50 | NUR ---
RECEIVED CHANGE OF SHIFT REPORT FROM DARIEL SARGENT. PT ALERT AND ORIENTED AND LYING IN BED. CONTINUES TO REPORT PAIN TO RT KNEE. NO APPARENT ACUTE DISTRESS NOTED AT THIS TIME. WILL CONTINUE TO MONITOR.
[2018-05-02 20:00] VITALS: BP 99/51
--- NOTE | 2018-05-03 | NUR ---
PT RESTING WITH EYES CLOSED AND APPEARS TO BE ASLEEP. RESP EVEN AND NON-LABORED. NO APPARENT ACUTE DISTRESS NOTED. WILL CONTINUE TO MONITOR.
[2018-05-03 00:16] VITALS: BP 101/53
--- NOTE | 2018-05-03 03:00 | NUR ---
PT C/O OF NUMBNESS AND TINGLING TO L HAND. FINGER ARE PALE AND CAP REFIL SLUGGISH AND >3 SECONDS. WARM COMPRESS APPLIED HAND. WILL CONTINUE TO MONITOR.
[2018-05-03 04:00] VITALS: BP 88/48
--- NOTE | 2018-05-03 04:26 | NUR ---
L HAND PINK AND WARM TO TOUCH. CAP REFIL BRISK AND <3 SEC. PT STATES THAT THE NUMBNESS AND TINGLING IS GONE.
[2018-05-03 05:32] LABS: HEMATOCRIT 36.6 % (39.0-50.0); HEMOGLOBIN 12.2 g/dl (14.0-18.0)
[2018-05-03 07:35] VITALS: BP 101/44
--- NOTE | 2018-05-03 07:35 | NUR ---
ASSESSMENT IS COMPLTED: PT IS RELAXING IN BED WITH NO DISTRESS NOTED. IV SITE IS FREE FROM REDNESS OR EDEMA. HR IS REG, PULSES ARE STRONG X4, ABD IS SOFT WITH ACTIVE BS. BREATH SOUNDS ARE CLEAR, CONTINUE TO OBSERVE AND MONITOR.
[2018-05-03 11:41] VITALS: BP 86/43
--- NOTE | 2018-05-03 11:51 | NUR ---
PT IS RELAXING IN BED WITH NO DISTRESS NOTED. IV SITE IS FREE FROM REDNESS OR EDEMA.CONTINUE TO OBSERVE AND MONITOR.
--- NOTE | 2018-05-03 12:39 | NUR ---
INFORMED PT RE: NEEDING TO GET UP AND OUT OF BED, DUE TO NOT WANTING TO BE IN THE HOSPITAL TOO LONG. CONTINUE TO OBSERVE AND MONITOR.
--- NOTE | 2018-05-03 14:25 | NUR ---
PT STATED" THE RIGHT HAND DOESN'T KNOW WHAT THE LEFT HAND IS DOING, PT IS WANTING TO GO HOME". INFORMED NAEL MOORE. CONTINUE TO OSBERVE AND MONITOR.
[2018-05-03 16:00] VITALS: BP 102/50
--- NOTE | 2018-05-03 16:15 | NUR ---
FAMILY IN THE ROOM. NO DISTRESS NOTED IV SITE IS FREE FROM REDNESS OR EDEMA. CONTINUE TO OBSERVE AND MONITOR.
--- NOTE | 2018-05-03 19:05 | NUR ---
RECEIVED CHANGE OF SHIFT REPORT FROM DARIEL SARGENT. PT ALRT AND ORIENTED AND SITTING UP IN BED. CONTINUES TO REPORT PAIN TO L KNEE. WILL CONTINUE TO MONITOR AND TREAT. NO APPARENT ACUTE DISTRESS NOTED.
[2018-05-03 20:13] VITALS: BP 91/47
[2018-05-04] VITALS: BP 116/58
--- NOTE | 2018-05-04 | NUR ---
PT IN BED IN FOLOWER POSITION AND APPEARS TO BE ASLEEP. PT AWOKE TO NAME. NO APPARENT ACUTE DISTRESS NOTED. WILL CONTINUE TO MONITOR.
[2018-05-04 03:55] VITALS: BP 117/64
--- NOTE | 2018-05-04 06:20 | NUR ---
PT MAKING INQUIRIES ABOUT WHEN HE WILL BE GOING HOME. PT STATED "I DO NOT WANT TO GO TO REHAB"
--- NOTE | 2018-05-04 06:26 | NUR ---
PT SLEPT WELL DURING THE NIGHT. NO APPARENT ACUTE CHANGES NOTED IN PT'S CONDITION.
[2018-05-04 07:25] VITALS: BP 106/45
--- NOTE | 2018-05-04 07:30 | NUR ---
PT RESTING IN BED ALERT AND ORIENTED; AROUSES EASILY TO VERBAL STIMULI, AM ASESSMENT COMPLETED SEE INTERVENTIONS, PT ADMIST TO [facility] WITH AMBULATION BUT FLAT REFUSES TO GO TO REHAB OUT OF TOWN, STATES HE WILL GO HOME HE HAS HEP THERE AND NO RECEPTIVE TO ANYTHING ELSE (VERY PLEASANT, JUST ADAMANT HE IS NOT GOING OUT OF TOWN FOR REHAB), STATES HE HAS A WALKER AT HOME AND HIS FAMILY WILL HELP HIM. DRESSINGS TO LEFT AND RIGHT WRIST/FOREARM SKIN TEARS INTACT, FOREHEAD ARASION SCABBED, NO S/S OF INFECTION NOTED. VS STBALE PT AFEBRILE, ALSO STATES LAST BM A FEW DAYS AGO, WILL ADDRESS WITH MD ON AM ROUNDS;CALL MCHUGH WITHIN REACH, SAFETY MEASURES REINFORCED, WAS RECEPTIVE TO HH/PHYSICAL THERAPY IF THAT WAS AN OPTION AVAILABLE TO HIM WILL NOTIFY [facility]. WILL CONTINUE TO MONITOR.
--- NOTE | 2018-05-04 09:30 | NUR ---
MEDICATED FOR PAIN EARLIER ORDERED, TOLERATED AM MEAL MODERATLEY WELL, OFFERS NO NEW COMPLAINTS, ASKS AGAIN ABOUT GOING HOME EDUCATED REGARDING D/C PROCESS AND NEED FOR MD ORDER/APPROVAL, VERBALIZES UNDERSTANDING.
--- NOTE | 2018-05-04 11:23 | NUR ---
VISITOR AT BEDSIDE, OFFERS NO NEW COMPLAINTS BENNIE FROM [facility] AWARE OF REFUSAL TO GO OUT OF TOWN [facility] REHAB.
--- NOTE | 2018-05-04 12:00 | NUR ---
IN TO SEE PATIENT, PLAN OF CARE DISCUSSED, MD TO SPEAK WITH [facility] REGARDING D/C PLAN, WILL CONTINUE TO MONITOR.
[2018-05-04 12:05] VITALS: BP 99/54
--- NOTE | 2018-05-04 12:08 | NUR ---
PT WAS SEEN RESTING ON BED WITH A FAMILY MEMBER IN THE ROOM. HE WAS ABLE TO SLIDE AND SCOOT HIMSELF TO EOB WITH MOD. INDEP IN A VERY SLOW PACE. PT WAS THEN PROVIDED MIN. A AND VC TO COMPLETE SIT TO STAND. HE THEN AMBULATED FROM BED TO RECLINER HOWEVER WAS UNABLE TO COMPLETELY CLEAR FEET OFF THE FLOOR WHILE WALKING. PT USED A ROLLING WALKER AND MIN A WAS ALSO GIVEN DURING THE TRANSFER. PT IS UNABLE TO EFFECTIVELY AMB. AT THIS TIME DUE TO INCREASING PAIN ON R KNEE ON WB ACTIVITIES. HE WAS LEFT COMFORTABLY SITTING ON THE RECLINER WITH LUNCH TRAY IN FRONT OF HIM. FAMILY MEMBER HELPED TO FEED HIM. LEFT CALL MCHUGH BESIDE PT. NO OTHER NEEDS STATED.
--- NOTE | 2018-05-04 12:51 | NUR ---
PT REQUESTING TO GO BACK TO BED, IT SUPPORT TECHNICIAN AT BEDSIDE FOR ASSIST, SIGNIFICANT OTHER REMAINS AT BEDSIDE.
--- NOTE | 2018-05-04 15:35 | NUR ---
PT REMAINS RESTING INBED, SIGN OTHER AT BEDSIDE, MEDICATED EARLIER FOR COMPLAINTS OF PAIN, WITH GOOD RELIEF, WILL CONTINUE TO MONITOR.
[2018-05-04 15:50] VITALS: BP 107/42
--- NOTE | 2018-05-04 17:43 | NUR ---
PT STATES HE IS AGREEABLE TO GO TO REHAB IF HE CAN GO TO THE ONE "[place]OWN" I WILL NOT GO OUT OF TOWN, JAMEL RN FROM [facility] NOTIFIED, SIGNIFICANT OTHER GONE HOME AT THIS TIME (AFTER ASKING AND BEING EDUCATED MUTIPLE TIMES THAT PT WOULD NOT BE GOING HOME WIHT HER TONIGHT WE HAVE NO DISCHARGE ORDERS) AT THIS TIME, WILL CONTINUE TO MONITOR.
[2018-05-04 19:00] VITALS: BP 124/74
--- NOTE | 2018-05-04 19:00 | NUR ---
RECEIVED CHANGE OF SHIFT REPORT FROM ELIO MCKEON. PT ALERT AND ORIENTED AND LYING IN BED. REPORTS UNRELIEVED PAIN OF 9 ON 0-10 PAIN SCALE. WILL CONTINUE TO MONITOR AND TREAT. NO APPARENT ACUTE DISTRESS NOTED.
--- NOTE | 2018-05-04 19:56 | NUR ---
MEDICATED PT WITH PERCOCET 10/325 X 1 TAB. OFFERED PUNE JUICE TO AID BM. WILL CONTINUE TO MONITOR.
[2018-05-05] VITALS (13 sets, daily range): BP systolic 50–127; BP diastolic 31–60
--- NOTE | 2018-05-05 | NUR ---
PT RESTING QUIETLY AT THIS TIME. NO APPARENT ACUTE DISTRESS NOTED.
--- NOTE | 2018-05-05 04:17 | NUR ---
PT SLEPT WELL DURING THE NIHGT. NO APPARENT ACUTE CHANGES NOTED IN PT'S CONDITION.
[2018-05-05 05:40] LABS: ALBUMIN 3.1 g/dL (3.2-5.0); BILIRUBIN, TOTAL 1.2 mg/dL (0.0-1.4); CREATININE 1.5 mg/dL (0.7-1.3); MAGNESIUM 2.3 mg/dL (1.6-2.3); POTASSIUM 4.8 mmol/l (3.5-5.1); TOTAL PROTEIN 5.7 g/dL (6.3-8.2)
[2018-05-05 05:46] LABS: HEMATOCRIT 39.3 % (39.0-50.0); HEMOGLOBIN 13.1 g/dl (14.0-18.0); IMMATURE GRANULOCYTES 0.4 % (0.0-5.0); MEAN CELL VOLUME 109.8 fL CALC (80.0-100.0); MEAN CORPUSCULAR HGB 36.6 pG CALC (26.0-32.0); MEAN CORPUSCULAR HGB CONC 33.3 g/L CALC (32.0-36.0); NEUT# 5.02 thou/uL (1.82-7.42); RED BLOOD COUNT 3.58 mill/uL (4.70-6.10)
--- NOTE | 2018-05-05 07:15 | NUR ---
PT REPORT RECIEVED FROM ELIO GOMEZ. PT RESTING IN BED. NO S/S OF DISTRESS NOTED. CALL LIGHT IN REACH. WILL CONTINUE TO MONITOR.
--- NOTE | 2018-05-05 07:36 | NUR ---
PT ASSESSMENT COMPLETE. PT APPEARS TO BE SLIGHTLY DROWSY. A/O X3. SPEECH IS CLEAR. RESP EVEN AND UNLABORED. LUNG SOUNDS CLEAR. TELE IN PLACE. ABDOMEN ROUND,SOFT. BOWEL SOUNDS ACTIVE X4. STRONG RADIAL PULSES. WEAK PEDAL PULSES. #22 LFA SL. FLUSHED AND PATENT. SITE APPEARS HEALTHY. SCABBED ABRASION TO LT FOREHEAD. NO DRAINAGE. DRESSINGS TO RT FOREARM, RT HAND, AND LT ELBOW CDI. PT STATES ACHING PAIN 9 OUT OF 10 ON PAIN SCALE. MEDICATED W/ ONE 325MG PERCOCET TABLET. REPOSTIONED IN RECLINER FOR COMFORT. PLAN OF CARE DISCUSSED. CALL LIGHT IN REACH. WILL CONTINUE TO MONITOR.
--- NOTE | 2018-05-05 08:28 | NUR ---
PT APPEARS TO BE SLEEPING IN RECLINER. PAIN REASSESSED. PT STATES LT ARM AND RT KNEE PAIN 6 OUT OF 10 ON PAIN SCALE. DENIES ANY FURTHER NEEDS AT THIS TIME. WILL CONTINUE TO MONITOR
--- NOTE | 2018-05-05 12:01 | NUR ---
Pt seen for therapy this am. He was OOB in chair with family present. Pt stood with min/mod assist of one x2 and ambulated 2 x 6' with min/mod assist. Pt took small shuffled steps and required verbal cues to stand tall. Pt was retro pulsive on first stand. AROM ex performed in sitting with passive gentle HS stretches done bilaterally. Pt left in chair with family assisting him with lunch set up.
--- NOTE | 2018-05-05 12:35 | NUR ---
JANNETTE DARBY IN TO DO PT NOON VITALS. MANAGER BUSINESS MANAGEMENT AND SHARIFA, RN CALLED IN TO SEE PT R/T ALTERED LOC. PT PUT BACK TO BED BY AND JANNETTE DARBY. MANUALLY BP DONE BY MANAGER BUSINESS MANAGEMENT . O2 STAT 87%, O2 APPLIED @3L VIA NC STAT NOW 92%. DR. ALCANTAR IN TO SEE PT NS 500ML BOLUS ORDERED. FLUIDS HUNG. WILL CONTINUE TO MONITOR.
--- NOTE | 2018-05-05 12:45 | NUR ---
BP RECHECKED READING 62/[address] ALCANTAR AT BEDSIDE TO DISCUSS DNR W/ FAMILY. DNR CONSENT OBTAINED. WILL CONTINUE TO MONITOR.
--- NOTE | 2018-05-05 13:18 | NUR ---
PT BP READING 102/47. PT A/O. NO S/S OF DISTRESS. PT DENIES ANY NEEDS AT THIS TIME. CALL LIGHT IN REACH. WILL CONTINUE TO MONITOR.
--- NOTE | 2018-05-05 14:55 | NUR ---
BP RECHECKED READING 121/40. PT A/O, ANSWERING ALL QUESTIONS. REPOSITIONED IN BED FOR COMFORT. NO S/S OF DISTRESS. CALL LIGHT IN REACH. WILL CONTINUE TO MONITOR.
--- NOTE | 2018-05-05 16:01 | NUR ---
PT BP CHECKED MANUALLY READING 90/40. PT SITTING UPRIGHT IN BED RESTING. LOC INCREASING. PT ANSWERS ALL QUESTIONS ASKED. FAMILY AT BEDSIDE. CALL LIGHT IN REACH. WILL CONTINUE TO MONITOR.
--- NOTE | 2018-05-05 16:30 | NUR ---
PT DRESSING TO LT ELBOW REMOVED. ONE SKIN TEAR NOTED W/ SCANT SEROSANGUINEOUS DRAINAGE VISIBLE. REDNESS NOTED. CLEAN W/ ADAPTIC, TELFA, KERLIX APPLIED. LT FOREARM DRESSING REMOVED. ONE SCABBED SKIN TEAR W/ SCANT BLOODY DRAINAGE. CLEANED W/ ADAPTIC, TELFA, KERLIX APPLIED. RT HAND DRESSING REMOVED W/ ONE SKIN TEAR SCANT SEROSANGUINEOUS DRAINAGE. SWELLING NOTED. CLEANED W/ ADAPTIC,TELFA,KERLIX APPLIED. RT KNEE LUIS BANDAGE REMOVED. SCABBED W/ SOME SWELLING AND BRUISING NOTED. ELEVATED ON PILLOW AND ICED. PT HAS STAGE 2 DECUB X3 TO COCCYX. BARRIER CREAM APPLIED AND PT TURNED TO SIDE TO RELIEVE PRESSURE.
--- NOTE | 2018-05-05 17:42 | NUR ---
PT SITTING UPRIGHT IN BED EATING DINNER. MORE ALERT, ORIENTED. BP READING 105/45. TELE IN PLACE. PT STATES HE FEELS WARM. TEMP READING 97.3. BLANKETS REMOVED OFF OF PT. PT REQUESTING PAIN MEDICATION. INSTRUCTED ON PAIN MEDICATION ADMINISTRATION. PT STATES UNDERSTANDING. REPOSITIONED W/ ASSIST IN BED FOR COMFORT. PT DENIES ANY FURTHER NEEDS. CALL LIGHT IN REACH. WILL CONTINUE TO MONITOR.
--- NOTE | 2018-05-05 19:10 | NUR ---
BEDSIDE REPORT RECEIVED FROM DAY NURSE. CALL LIGHT IS AT BEDSIDE, PT IN HIGH FOWLERS POSITION W/PILLOWS ON LEFT SIDE FOR PRESSURE RELEIF TO COCCYX. PT IS WATCHING TV AND DENIES ANY NEEDS AT THIS TIME.
--- NOTE | 2018-05-05 21:08 | NUR ---
PT MEDICATED ORDERS PROVIDE AND REPOSITIONED. DRESSING TO KNEE, RIGHT HAND, LEFT ARM ARE CDI. O2 NC ON ORDERED. LUNG SOUNDS ARE DIM/CLEAR, ABD FIRM NON-TENDER, PT REPORTS PAIN 8/10 IN RIGHT KNEE AND ANKLE AND RIGHT HAND/ MEDICATED ORDERS ALLOWED. CALL LIGHT IS AT SIDE. ICE PACK IN PLACE TO RIGHT ANKLE. PT DENIES ANY OTHER NEEDS AT THIS TIME. WILL CONTINUE TO MONITOR.
--- NOTE | 2018-05-06 02:40 | NUR ---
PT O2 IS OFF AGAIN, O2SAT 86%RA. HE REPORTS THAT IT IS IRRITATING HIS NOSE AND DRYING HIM OUT. HUMIDIFIED O2 WAS ADDED TO NC AND HE IS WEARING O2 AT THIS TIME WITH O2SAT LEVEL @100% ON 02 3L. WILL CONTINUE TO MONITOR NEEDED. ED CALLED TO REPORT PT OFF BLOOD BANK ATTENDANT. LEADS REAPPLIED AND ED CONFIRMED READING. CALL LIGHT AT SIDE.
--- NOTE | 2018-05-06 04:00 | NUR ---
PT IS SLEEPING SOUNDLY AT THIS TIME. O2NC IS ON. NO S/S OF DISTRESS NOTED AT THIS TIME. CALL LIGHT IS AT BEDSIDE.
[2018-05-06 04:29] VITALS: BP 119/40
--- NOTE | 2018-05-06 08:16 | NUR ---
SPOKE WITH YAMIL FROM HOSPICE, SHE IS TO SPEAK TO DAUGHTER AND ARRANGE A MEETING WITH PT IN [phone] AT [phone].
[2018-05-06 09:19] VITALS: BP 119/45
--- NOTE | 2018-05-06 10:05 | NUR ---
HOSPICE NURSE TO BEDSIDE WITH FAMILY AND PT.
[2018-05-06] MEDS ORDERED: COMPAZINE10 MG PO (12:16)
[2018-05-06] MEDS ORDERED: PERCOCET 10/31 COMBO PO ×2 (12:16→13:01)
[2018-05-06 12:30] VITALS: BP 82/49
[2018-05-06] MEDS ORDERED: PERCOCET 5/325M1 TAB PO (13:01)
[2018-05-06] MEDS ORDERED: LIDOCAINE22 EX (13:01)
--- NOTE | 2018-05-06 14:00 | NUR ---
INFORMED BY CHRISTIANO, ETA 45 MIN-1HR. PT MEDICATED FOR PAIN. IV SITE REMOVED TO RFA, TOLERATED WELL. BADAGE APPLIED.
--- NOTE | 2018-05-06 15:33 | NUR ---
Discharge instructions given. Patient verbalizes understanding of same. Discharged in stable condition via Wheelchair to Home with Hospice accompanied by spouse. All belongings sent with pt.
== END 2018-05-06 15:45 | disposition hospice, home (50) | DRG 563 ==
LOC: ED 16:43 → ED-I 18:35 → ED 18:49 → MS2 18:50
PROVIDERS: Internal Medicine Nephrology; Nurse Practitioner Family; ADMIT Internal Medicine; ATTEND Internal Medicine
DX: S83.8X1A Sprain of other specified parts of right knee, initial encounter (principal); B37.0 Candidal stomatitis; S00.81XA Abrasion of other part of head, initial encounter; S80.211A Abrasion, right knee, initial encounter; S61.411A Laceration without foreign body of right hand, initial encounter; S61.511A Laceration without foreign body of right wrist, initial encounter; S13.9XXA Sprain of joints and ligaments of unspecified parts of neck, initial encounter; S51.012A Laceration without foreign body of left elbow, initial encounter; I10 Essential (primary) hypertension; I48.2 Chronic atrial fibrillation; J44.9 Chronic obstructive pulmonary disease, unspecified; E78.5 Hyperlipidemia, unspecified; I95.9 Hypotension, unspecified; I73.9 Peripheral vascular disease, unspecified; I25.10 Atherosclerotic heart disease of native coronary artery without angina pectoris; F17.210 Nicotine dependence, cigarettes, uncomplicated; M17.11 Unilateral primary osteoarthritis, right knee; M54.9 Dorsalgia, unspecified; G89.29 Other chronic pain; W01.0XXA Fall on same level from slipping, tripping and stumbling without subsequent striking against object, initial encounter; Y92.008 Other place in unspecified non-institutional (private) residence as the place of occurrence of the external cause; Z66 Do not resuscitate; Z51.5 Encounter for palliative care; Z95.828 Presence of other vascular implants and grafts; Z95.0 Presence of cardiac pacemaker; Z72.89 Other problems related to lifestyle
CPT/HCPCS: G0378